=== PATIENT | female | born 2000 | race Caucasian/White ===

== ENCOUNTER 2021-05-17 19:44 | Outpatient (CLI) | payer MEDICAID, SELFPAY ==
[2021-05-17 19:46] LABS: Mucous, Urine 0 SEEN /hpf (<or=2+); Red Blood Cells-Urine 0 SEEN /hpf (0-5)
[2021-05-17 19:55] LABS: Color, Urine Amber (Yellow); Glucose, Dipstick Normal (Normal); Ketone-Dipstick 50 mg/dl (Negative); Leukocyte Esterase-Dipstick 100 /ul (Negative); Nitrite-Dipstick Negative (Negative); Occult Blood-Urine Negative /ul (Negative); Protein-Dipstick 30 mg/dl (Negative); Specific Gravity, Urine 1.025 (1.002-1.030); Urine Clarity Clear (Clear); Urine Urobilinogen 1 mg/dl (Normal)
[2021-05-17 19:59] LABS: Urine Bilirubin Dipstick 1 mg/dL (Negative)
[2021-05-17 20:04] LABS: Bacteria 1+ /hpf (None Seen); Squamous Epithelial Cells - UA 0-5 SEEN /hpf (5-10); White Blood Cells 0-5 SEEN /hpf (0-5)
[2021-05-17 21:39] LABS: Chlamydia Trachomatis by PCR POSITIVE (Negative)
[2021-05-17 21:40] LABS: Neisserai gonorrhoeae by PCR Negative (Negative); Probe Check PASS
== END 2021-05-17 23:59 | disposition short-term general hospital (02) ==
PROVIDERS: Visit Provider Physician Assistant Surgical
DX: Z76.89 Persons encountering health services in other specified circumstances (principal)
CPT/HCPCS: 81001; 87077; 87086; 87088; 87186; 87491; 87591